=== PATIENT | male | born 1960 | race Two or more races ===

== ENCOUNTER 2019-12-31 03:26 | Observation (INO) | payer OTHER ==
[~2019-12-31] VITALS: Ht 185.4 cm; Wt 88.4 kg
[2019-12-31] MEDS ORDERED: IBUP-2759 PO (03:40)
[2019-12-31] MEDS ORDERED: ALBU8HFA IH (03:40)
[2019-12-31] MEDS ORDERED: IBUPROFEN 600 MG TABLET PO ONE (03:45)
[2019-12-31] MEDS ORDERED: ALBUTEROL SULFATE HFA 90 MCG/PUFF 8 GM INHALER IH ONE (03:45)
[2019-12-31 04:06] LABS: COVID AG,FIA SOURCE NASOPHARYNGEAL
[2019-12-31 04:42] LABS: BASOPHILS % (AUTO) 0.5 % (0.0-2.0); EOSINOPHILS % (AUTO) 3.2 % (1.0-6.0); HEMATOCRIT 45.8 % (41-53); HEMOGLOBIN 15.2 g/dL (13.5-17.5); LYMPHOCYTES # (AUTO) 1.5 K/uL (1.0-4.8); LYMPHOCYTES % (AUTO) 20.6 % (22.0-44.0); MEAN CORPUSCULAR HEMOGLOBIN 29.6 pg (26.0-34.0); MEAN CORPUSCULAR HGB CONC 33.3 G/dL (31.0-37.0); MEAN CORPUSCULAR VOLUME 89 fL (80-100); MONOCYTES # (AUTO) 0.6 K/uL (0.1-1.0); MONOCYTES % (AUTO) 7.7 % (2.0-9.0); PLATELET COUNT (AUTO) 169 K/uL (150-450); RED BLOOD CELL COUNT(AUTO) 5.14 MIL/uL (4.50-5.90)
[2019-12-31 04:52] LABS: ANION GAP 7 mmol/L (8-16); CALCIUM, TOTAL 8.7 mg/dL (8.8-10.5); CARBON DIOXIDE 29 mmol/L (22-29); CHLORIDE 105 mmol/L (98-107); CREATININE 0.74 mg/dL (0.60-1.30); GLOMERULAR FILTR. RATE CALC > 60 mL/min (>60); GLUCOSE,RANDOM 126 mg/dL (70-110); POTASSIUM 3.4 mmol/L (3.5-5.1); SODIUM SERUM 141 mmol/L (136-145); UREA NITROGEN, BLOOD 18 mg/dL (7-18)
[2019-12-31 05:03] LABS: PROTHROMBIN TIME 10.8 SEC (9.4-11.6)
[2019-12-31 05:15] LABS: ALANINE AMINOTRANSFERASE 25 U/L (12-78); ALBUMIN 3.5 g/dL (3.4-5.0); ALKALINE PHOSPHATASE 82 U/L (46-116); ASPARTATE AMINOTRANSFERASE 19 U/L (15-37); B-TYPE NATRIURETIC PEPTIDE 15 pg/mL (0-100); BILIRUBIN,TOTAL 0.9 mg/dL (0.1-1.0); CREATINE KINASE, TOTAL ONLY 190 U/L (39-308); TOTAL PROTEIN, SERUM 6.5 g/dL (6.4-8.2)
[2019-12-31] MEDS ORDERED: 0.9% SODIUM CHLORIDE 10 ML SYRINGE IVP PRN (05:30)
[2019-12-31] MEDS ORDERED: ACETAMINOPHEN 325 MG TABLET PO PRN ×2 (05:30→15:00)
[2019-12-31] MEDS ORDERED: ONDANSETRON HCL 4 MG/2 ML VIAL IVP PRN ×2 (05:30→15:00)
[2019-12-31 06:19] VITALS: BP 146/96
[2019-12-31] MEDS: MULTIVITAMINS, THERAPEUTIC 15 ML UDCUP PO SCH (15:00)
[2019-12-31] MEDS ORDERED: ALBUTEROL SULFATE HFA 90 MCG/PUFF 8 GM INHALER IH PRN (15:00)
[2019-12-31 20:18] VITALS: BP 149/100
[2019-12-31] MEDS ORDERED: SODIUM CHLORIDE 0.9% 500 ML IV ONE (21:37)
[2019-12-31 23:48] VITALS: BP 130/95
[2020-01-01 05:50] VITALS: BP 139/94
[2020-01-01 06:35] LABS: BASOPHILS % (AUTO) 0.6 % (0.0-2.0); EOSINOPHILS % (AUTO) 3.6 % (1.0-6.0); HEMATOCRIT 47.6 % (41-53); HEMOGLOBIN 16.3 g/dL (13.5-17.5); LYMPHOCYTES # (AUTO) 1.4 K/uL (1.0-4.8); LYMPHOCYTES % (AUTO) 18.4 % (22.0-44.0); MEAN CORPUSCULAR HEMOGLOBIN 31.2 pg (26.0-34.0); MEAN CORPUSCULAR HGB CONC 34.3 G/dL (31.0-37.0); MEAN CORPUSCULAR VOLUME 91 fL (80-100); MONOCYTES # (AUTO) 0.6 K/uL (0.1-1.0); MONOCYTES % (AUTO) 7.1 % (2.0-9.0); NEUTROPHILS # (AUTO) 5.5 K/uL (1.8-7.7); NEUTROPHILS % (AUTO) 70.3 % (40.0-70.0); PLATELET COUNT (AUTO) 160 K/uL (150-450); RED BLOOD CELL COUNT(AUTO) 5.24 MIL/uL (4.50-5.90); RED CELL DISTRIBUTION WIDTH 14.3 % (11.5-14.5)
[2020-01-01 06:52] LABS: ALANINE AMINOTRANSFERASE 23 U/L (12-78); ALBUMIN 3.3 g/dL (3.4-5.0); ALKALINE PHOSPHATASE 80 U/L (46-116); ANION GAP 8 mmol/L (8-16); ASPARTATE AMINOTRANSFERASE 12 U/L (15-37); BILIRUBIN,TOTAL 0.4 mg/dL (0.1-1.0); CALCIUM, TOTAL 8.9 mg/dL (8.8-10.5); CARBON DIOXIDE 28 mmol/L (22-29); CHLORIDE 105 mmol/L (98-107); CREATININE 0.89 mg/dL (0.60-1.30); GLOMERULAR FILTR. RATE CALC > 60 mL/min (>60); GLUCOSE,RANDOM 101 mg/dL (70-110); POTASSIUM 3.6 mmol/L (3.5-5.1); SODIUM SERUM 141 mmol/L (136-145); TOTAL PROTEIN, SERUM 6.2 g/dL (6.4-8.2); UREA NITROGEN, BLOOD 18 mg/dL (7-18)
[2020-01-01] MEDS: MULTIVITAMINS, THERAPEUTIC 15 ML UDCUP PO SCH (08:07)
[2020-01-01 08:27] VITALS: BP 134/91
[2020-01-01] MEDS ORDERED: ENOXAPARIN SODIUM 40 MG/0.4 ML PF SYRINGE SQ SCH (09:00)
[2020-01-02] MEDS ORDERED: MULTIVITAMINS WITH MINERALS, THERAPEUTIC TABLET PO SCH (09:00)
== END 2020-01-01 19:00 ==
LOC: EMS 03:26 → 6N 05:20 → INTOOBSV 05:20 → 6S 05:59
PROVIDERS: ADMIT Internal Medicine; ATTEND Internal Medicine
DX: J45.909 Unspecified asthma, uncomplicated (principal); Z20.828 Contact with and (suspected) exposure to other viral communicable diseases; E87.6 Hypokalemia; Z79.899 Other long term (current) drug therapy
CPT/HCPCS: 36415; 71045; 80053 ×2; 82550; 83880; 84484; 85025 ×2; 85610; 85730; 87426; 93005; 96372; 99219; 99285; J1650; J7040; U0003; J3535

== ENCOUNTER 2025-01-30 15:51 | Inpatient (IN) | payer OTHER ==
[~2025-01-30] VITALS: Ht 185.4 cm; Wt 113.6 kg
[~2025-01-30 15:51] MED LIST: ALBU18HF12 IH; IBUP-45 PO
[2025-01-30 16:49] LABS: PLATELET COUNT (AUTO) 136 K/uL (150-450); RED BLOOD CELL COUNT(AUTO) 4.91 MIL/uL (4.50-5.90); RED CELL DISTRIBUTION WIDTH 13.9 % (11.5-14.5); WHITE BLOOD COUNT (AUTO) 6.9 K/uL (4.5-11.0)
[2025-01-30 16:53] LABS: CREATININE 0.81 mg/dL (0.60-1.30); GLUCOSE,RANDOM 98 mg/dL (70-110); SODIUM SERUM 141 mmol/L (136-145); UREA NITROGEN, BLOOD 13 mg/dL (7-18)
[2025-01-30 16:54] LABS: CALCIUM, TOTAL 8.1 mg/dL (8.8-10.5); GLOMERULAR FILTR. RATE CALC > 60 mL/min (>60)
[2025-01-30 16:58] LABS: ASPARTATE AMINOTRANSFERASE 13 U/L (15-37); TOTAL PROTEIN, SERUM 6.6 g/dL (6.4-8.2)
[2025-01-30] MEDS ORDERED: MORPHINE SULFATE 4 MG/ML SYRINGE IVP PRN (17:15)
[2025-01-30] MEDS ORDERED: MAGNESIUM HYDROXIDE SUSPENSION 30 ML UDCUP PO PRN (17:15)
[2025-01-30] MEDS ORDERED: OxyCODONE HCL/ACETAMINOPHEN 5-325 MG TABLET PO PRN (17:15)
[2025-01-30] MEDS: MORPHINE SULFATE 4 MG/ML SYRINGE IVP ONE (17:32)
[2025-01-30] MEDS: ONDANSETRON HCL 4 MG/2 ML VIAL IVP ONE (17:33)
[2025-01-30] MEDS: SODIUM CHLORIDE 0.9% 1,000 ML IV ONE (17:33)
[2025-01-30] MEDS ORDERED: IOHEXOL 350 MG/ML 100 ML VIAL ONE (17:52)
[2025-01-30] MEDS ORDERED: SODIUM CHLORIDE 0.9% 100 ML ONE (17:52)
[2025-01-30] MEDS ORDERED: 0.9% SODIUM CHLORIDE 10 ML SYRINGE IVP ONE (17:53)
[2025-01-30 21:40] VITALS: BP 138/81; PULSE 68; RESP 18; TEMP 97.7; O2SAT 96
[2025-01-30] MEDS: HEPARIN SODIUM,PORCINE 5,000 UNITS/ML VIAL SQ SCH (23:33)
[2025-01-30] MEDS: ZOLPIDEM TARTRATE 5 MG TABLET PO PRN (23:38)
[2025-01-31 04:36] VITALS: BP 125/74; PULSE 72; RESP 18; TEMP 97.9; O2SAT 97
[2025-01-31 08:00] VITALS: BP 110/73; PULSE 73; RESP 20; TEMP 97.9; O2SAT 96
[2025-01-31] MEDS: FAMOTIDINE 20 MG TABLET PO SCH (08:03)
[2025-01-31] MEDS: ACETAMINOPHEN 325 MG TABLET PO PRN (08:03)
[2025-01-31] MEDS: ONDANSETRON HCL 4 MG/2 ML VIAL IVP PRN (08:03)
[2025-01-31 21:10] VITALS: BP 135/90; PULSE 72; RESP 18; TEMP 97.9; O2SAT 96
[2025-02-01 05:04] VITALS: BP 132/90; PULSE 87; RESP 18; TEMP 97.9; O2SAT 95
[2025-02-01 08:00] VITALS: BP 139/95; PULSE 80; RESP 18; TEMP 97.7; O2SAT 95
[2025-02-01 16:00] VITALS: BP 146/86; PULSE 72; RESP 16; TEMP 97.9; O2SAT 95
[2025-02-01 20:00] VITALS: BP 154/88; PULSE 78; RESP 18; TEMP 98.1; O2SAT 95
[2025-02-02 04:00] VITALS: BP 153/83; PULSE 78; RESP 18; TEMP 98.1; O2SAT 95
[2025-02-02 08:48] VITALS: BP 135/68; PULSE 74; RESP 17; TEMP 97.7; O2SAT 100
== END 2025-02-02 20:26 | DRG 552 ==
LOC: EMS 15:54 → EDH 17:13 → 6S 21:40
PROVIDERS: ADMIT Internal Medicine; ATTEND Internal Medicine
DX: M54.50 Low back pain, unspecified (principal); E66.9 Obesity, unspecified; I10 Essential (primary) hypertension; F17.200 Nicotine dependence, unspecified, uncomplicated; N43.3 Hydrocele, unspecified; N50.82 Scrotal pain; K80.20 Calculus of gallbladder without cholecystitis without obstruction; R32 Unspecified urinary incontinence; R19.7 Diarrhea, unspecified; K44.9 Diaphragmatic hernia without obstruction or gangrene; N50.0 Atrophy of testis; Z68.33 Body mass index [BMI] 33.0-33.9, adult
CPT/HCPCS: 71260; 72132; 72193; 74160; 76870; 80053; 83690; 84153; 85025; 96361; 96374; 97110; 97161; 97530; 99285; J1644; J2270; J2405; J7030; J7050; 36415-L1; 36415-TC